=== PATIENT | female | born 1975 | race Caucasian/White ===

== ENCOUNTER 2022-12-12 09:06 | Emergency (ER) | payer OTHER ==
[~2022-12-12] VITALS: Ht 162.6 cm; Wt 61.2 kg
--- NOTE | 2022-12-12 09:23 | NUR ---
Pt brought in by cousin from home. Chief complaint RLQ pain radiates to peritoneal area.Pt states history of 4 years of chronic constipation. Pt last BM yesterday. Pt states awoke this morning for the restroom and when she "pushed" was unable to empty bowels. [place] 8/10 pain . Pt is in the position in the rwallace with cousin bedside. PMhx: Gall badder removal and ectopic . No current medication.
--- NOTE | 2022-12-12 10:05 | NUR ---
ER at bedside examining patient.
[2022-12-12] MEDS ORDERED: KETOROLAC TROMETHAMINE 30 MG VIAL IVP ONE (10:15)
--- NOTE | 2022-12-12 10:20 | NUR ---
Pt states to waive the HCG urine screen statement of "I have an IUD and cannot possibly be "
--- NOTE | 2022-12-12 10:22 | NUR ---
# 20 gauge angiocath placed to left antecubital fossa. Use of asceptic technique. Opsite placed over site. Blood return noted. Blood for lab drawn from site. Flushed with 10 cc of normal saline. No evidence of infiltration noted. Patient tolerated well.
--- NOTE | 2022-12-12 10:23 | NUR ---
JOSE M Meier administering IVP Toradol for pain management.
[2022-12-12 10:39] LABS: BASOPHILS # (AUTO) 0.1 K/uL (0.0-0.2); BASOPHILS % (AUTO) 0.9 % (0.0-2.0); EOSINOPHILS # (AUTO) 0.1 K/uL (0.0-0.4); HEMATOCRIT 45.9 % (36-48); HEMOGLOBIN 15.2 g/dL (12.0-16.0); LYMPHOCYTES # (AUTO) 1.4 K/uL (1.0-5.5); LYMPHOCYTES % (AUTO) 24.3 % (20.5-51.5); MEAN CORPUSCULAR HEMOGLOBIN 29 pg (27-31); MEAN CORPUSCULAR HGB CONC 33 % (32-36); MEAN CORPUSCULAR VOLUME 88 fL (79.0-98.0); MONOCYTES # (AUTO) 0.4 K/uL (0.0-1.0); MONOCYTES % (AUTO) 7.8 % (1.7-9.3); NEUTROPHILS # (AUTO) 3.7 K/uL (1.8-7.7); PLATELET COUNT (AUTO) 294 K/uL (130-430); RED BLOOD CELL COUNT(AUTO) 5.21 MIL/uL (4.2-6.2); RED CELL DISTRIBUTION WIDTH 14.4 % (9.0-15.0); WHITE BLOOD COUNT (AUTO) 5.7 K/uL (4.8-10.8)
[2022-12-12 10:46] LABS: CALCIUM 9.1 mg/dL (8.4-11.0); CREATININE 0.77 mg/dL (0.55-1.30)
[2022-12-12 10:51] LABS: ALBUMIN 3.9 g/dL (3.4-4.8); TOTAL BILIRUBIN 0.4 mg/dL (0.0-1.0)
--- NOTE | 2022-12-12 10:51 | NUR ---
Pt to radiology via wheel chair.
--- NOTE | 2022-12-12 11:13 | NUR ---
Pt returns to [facility] room 4, pain measures effective. pt in [place].
[2022-12-12 11:25] LABS: BILIRUBIN,URINE NEGATIVE (NEGATIVE); BLOOD, URINE NEGATIVE (NEGATIVE); CLARITY/URINE CLEAR (CLEAR); COLOR,URINE YELLOW (YELLOW); GLUCOSE,URINE NEGATIVE (NEGATIVE); KETONES,URINE NEGATIVE (NEGATIVE); LEUKOCYTE ESTERASE ,URINE NEGATIVE (NEGATIVE); NITRITE, URINE NEGATIVE (NEGATIVE); PROTEIN URINE NEGATIVE (NEGATIVE); UROBILINOGEN,URINE 0.2 (0.2-1.0)
[2022-12-12] MEDS ORDERED: PEG4000S4 PO (11:51)
[2022-12-12] MEDS ORDERED: TRAM50TA2 PO (11:51)
[2022-12-12] MEDS ORDERED: GLYC-24 RC (11:51)
--- NOTE | 2022-12-12 12:12 | NUR ---
Patient given written and verbal discharge instructions and verbalizes understanding. ER MD discussed with patient the results and treatment provided. Patient in stable condition. ID arm band removed. Rx of GLYCERIN, GOLYTELY AND ULTRAM given. Patient educated on pain management and to follow up with PMD. Opportunity for questions provided and answered. Medication side effect fact sheet provided.
[2022-12-12 12:13] VITALS: BP_SYST 121
== END 2022-12-12 12:12 | disposition home or self-care (01) ==
LOC: SED 09:06
DX: K40.90 Unilateral inguinal hernia, without obstruction or gangrene, not specified as recurrent (principal); Z79.899 Other long term (current) drug therapy
CPT/HCPCS: 99285; 74176; 96374; 80053; 83690; 85025; 36415; 76376; 81003; J1885